=== PATIENT | female | born 1945 | race Hispanic/Latino ===

== ENCOUNTER → 2018-07-10 | Outpatient (CLI) | payer MEDICARE, OTHER | END | disposition home or self-care (01) | LOC: RAH 10:47 | PROVIDERS: ATTEND Internal Medicine Gastroenterology | DX: R14.0 Abdominal distension (gaseous) (principal); R10.9 Unspecified abdominal pain; R11.2 Nausea with vomiting, unspecified; R68.81 Early satiety | CPT/HCPCS: 78264; A9541 ==

== ENCOUNTER 2022-01-18 10:26 | Emergency (ER) | payer MEDICARE, OTHER ==
[~2022-01-18] VITALS: Ht 152.4 cm; Wt 50.3 kg
[2022-01-18 12:33] LABS: APPEARANCE,URINE Cloudy (CLEAR); BILIRUBIN,URINE Negative (NEGATIVE); COLOR,URINE Dark Yellow (YELLOW); GLUCOSE, URINE (UA) Negative (NEGATIVE); KETONES,URINE Trace mg/dL (NEGATIVE); LEUKOCYTE ESTERASE ,URINE Trace (NEGATIVE); NITRATE,URINE Negative (NEGATIVE); OCCULT BLOOD,URINE Negative (NEGATIVE); PROTEIN,URINE POS 1+ mg/dL (NEGATIVE)
[2022-01-18 12:36] LABS: BACTERIA,URINE Rare /HPF (None Seen); RBC,URINE 0-1 /HPF (0-1); SQUAMOUS EPITHELIAL CELL,UR Rare /HPF (0-2); WBC,URINE 0-1 /HPF (0-1)
[2022-01-18 12:52] LABS: HEMATOCRIT 39.8 % (36-48); LYMPHOCYTES % (AUTO) 16.6 % (21.0-51.0); MEAN CORPUSCULAR HEMOGLOBIN 29.6 pg (27.0-33.0); MEAN CORPUSCULAR HGB CONC 32.9 g/dL (32.0-36.0); MONOCYTES % (AUTO) 7.2 % (3.0-13.0); NEUTROPHILS % (AUTO) 72.9 % (40.0-77.0); PLATELET COUNT (AUTO) 458 K/uL (130-400); RED BLOOD CELL COUNT(AUTO) 4.42 MIL/uL (4.00-5.50); WHITE BLOOD COUNT (AUTO) 9.1 K/uL (4.8-10.8)
[2022-01-18 13:08] LABS: CREATININE 1.1 mg/dL (0.5-1.5); POTASSIUM 4.2 mmol/L (3.5-5.1)
[2022-01-18 13:14] LABS: ALBUMIN 4.2 g/dL (3.5-5.0); BILIRUBIN,TOTAL 0.3 mg/dL (0.2-1.0); TOTAL PROTEIN, SERUM 7.9 g/dL (6.0-8.3)
[2022-01-18 14:46] VITALS: BP 177/82
[2022-01-18] MEDS ORDERED: 0.9% NACL 500ML IV.SOLN 500 ML IV ONE (16:00)
[2022-01-18] MEDS ORDERED: KETOROLAC 15MG/ML VIAL (15MG/ML) IV ONE (16:00)
== END 2022-01-18 17:10 | disposition home or self-care (01) ==
LOC: EDH 10:26
DX: R51.9 Headache, unspecified (principal); M25.511 Pain in right shoulder; E03.9 Hypothyroidism, unspecified; Z79.1 Long term (current) use of non-steroidal anti-inflammatories (NSAID)
CPT/HCPCS: 36415; 80053; 81001; 85025; 96374; 99283; J1885; J7040

== ENCOUNTER 2023-09-10 17:16 | Observation (INO) | payer MEDICARE ==
[~2023-09-10] VITALS: Ht 152.4 cm; Wt 53.3 kg
[2023-09-10 18:39] LABS: BASOPHILS % (AUTO) 1.2 % (0.0-5.0); EOSINOPHILS # (AUTO) 0.35 K/uL (0.00-0.70); EOSINOPHILS % (AUTO) 4.2 % (0.0-8.0); HEMATOCRIT 33.6 % (36-48); IMMATURE GRANULOCYTE ABSOLUTE 0.03 K/uL (0-1); LYMPHOCYTES # (AUTO) 1.8 K/uL (1.0-4.8); MEAN CORPUSCULAR HEMOGLOBIN 30.1 pg (27.0-33.0); MEAN CORPUSCULAR HGB CONC 34.5 g/dL (32.0-36.0); MEAN CORPUSCULAR VOLUME 87.3 fL (79-99); MONOCYTES # (AUTO) 0.7 K/uL (0.1-1.0); MONOCYTES % (AUTO) 7.9 % (3.0-13.0); NEUTROPHILS # (AUTO) 5.4 K/uL (1.8-7.7); NEUTROPHILS % (AUTO) 64.3 % (40.0-77.0); PLATELET COUNT (AUTO) 466 K/uL (130-400); RED BLOOD CELL COUNT(AUTO) 3.85 MIL/uL (4.00-5.50); RED CELL DISTRIBUTION WIDTH 13.2 % (11.0-15.5); WHITE BLOOD COUNT (AUTO) 8.3 K/uL (4.8-10.8)
[2023-09-10 18:56] LABS: ALBUMIN 3.6 g/dL (3.5-5.0); CREATININE 1.7 mg/dL (0.5-1.5)
[2023-09-10 19:02] LABS: BILIRUBIN,TOTAL 0.1 mg/dL (0.2-1.0); TOTAL PROTEIN, SERUM 7.2 g/dL (6.0-8.3)
[2023-09-10 19:06] LABS: POTASSIUM 2.6 mmol/L (3.5-5.1)
[2023-09-10 19:35] LABS: ADD UA MICROSCOPIC YES; APPEARANCE,URINE CLEAR (CLEAR); BILIRUBIN,URINE NEGATIVE (NEGATIVE); COLOR,URINE LIGHT-YELLOW (YELLOW); GLUCOSE, URINE (UA) NEGATIVE (NEGATIVE); KETONES,URINE NEGATIVE (NEGATIVE); LEUKOCYTE ESTERASE ,URINE NEGATIVE Leu/uL (NEGATIVE); NITRATE,URINE NEGATIVE (NEGATIVE); OCCULT BLOOD,URINE NEGATIVE (NEGATIVE); PH,URINE 6.5 (5.0-8.0); PROTEIN,URINE NEGATIVE (NEGATIVE); UROBILINOGEN,URINE 0.2 mg/dL (0.2-1.0)
[2023-09-10 19:38] LABS: MUCUS,URINE RARE LPF (None Seen); RBC,URINE 0-1 /HPF (0-1); SQUAMOUS EPITHELIAL CELL,UR RARE /HPF (0-2)
[2023-09-10] MEDS: POTASSIUM CHLORIDE 20MEQ/100ML 100 ML IV ONE (20:05)
[2023-09-11] MEDS ORDERED: POTASSIUM CHLORIDE 10% ELIXIR 20 MEQ/15 ML UDCUP PO PRN
[2023-09-11] MEDS ORDERED: ONDANSETRON 4MG TABLET PO PRN
[2023-09-11] MEDS ORDERED: ACETAMINOPHEN 325 MG TAB PO PRN
[2023-09-11] MEDS ORDERED: KCL 20 MEQ ERTAB PO PRN
[2023-09-11] MEDS: 0.9%NACL 1000ML 1,000 ML IV SCH (01:02)
[2023-09-11] MEDS: POTASSIUM CHLORIDE 10MEQ/100ML 100 ML IV PRN (01:51)
[2023-09-11] MEDS ORDERED: MAGNESIUM 2GM PREMIX 50ML 50 ML IV PRN (02:00)
[2023-09-11 02:05] VITALS: BP 140/64; PULSE 58; RESP 20
[2023-09-11 02:19] VITALS: O2SAT 97
[2023-09-11 04:00] VITALS: BP 126/59; PULSE 53; RESP 20
[2023-09-11 05:38] LABS: CREATININE 1.4 mg/dL (0.5-1.5); POTASSIUM 4.2 mmol/L (3.5-5.1)
[2023-09-11 07:30] VITALS: O2SAT 97
[2023-09-11 08:00] VITALS: BP 132/60; PULSE 56; RESP 16
[2023-09-11] MEDS ORDERED: LOPE2CAP PO (08:51)
[2023-09-11] MEDS ORDERED: FOLI1TAB85 PO (08:51)
[2023-09-11] MEDS ORDERED: ROSU5TAB12 PO (08:51)
[2023-09-11] MEDS ORDERED: LOPERAMIDE HCL 2 MG CAP PO PRN (09:00)
[2023-09-11] MEDS ORDERED: POTA-202 PO (09:43)
[2023-09-11] MEDS ORDERED: Rosuvastatin Calcium 5 MG PO SCH (17:00)
[2023-09-12] MEDS ORDERED: Vitamin B Complex/Vit C/Folic Acid PO SCH (09:00)
[2023-09-13 17:10] LABS: C DIFFICILE TOXIN A/B Not Detected (Not Detected); ENTEROAGGREGATIVE ECOLI Not Detected (Not Detected); GIARDIA LAMBLIA Not Detected (Not Detected); PLESIOMONAS SHIGELOIDES Not Detected (Not Detected); SAPOVIRUS Not Detected (Not Detected); SHIGELLA/ENTEROINVASIVE E COLI Not Detected (Not Detected); VIBRIO Not Detected (Not Detected); VIBRIO CHOLERAE Not Detected (Not Detected)
== END 2023-09-11 10:20 | disposition home or self-care (01) ==
LOC: EDH 17:16 → EDHIP 23:00 → 3CH 09-11 01:16
PROVIDERS: ADMIT Internal Medicine; ATTEND Internal Medicine
DX: K52.9 Noninfective gastroenteritis and colitis, unspecified (principal); N18.31 Chronic kidney disease, stage 3a; E87.6 Hypokalemia; E86.0 Dehydration; E87.1 Hypo-osmolality and hyponatremia; M47.812 Spondylosis without myelopathy or radiculopathy, cervical region; M47.816 Spondylosis without myelopathy or radiculopathy, lumbar region; E88.810 Metabolic syndrome; M81.0 Age-related osteoporosis without current pathological fracture; E78.5 Hyperlipidemia, unspecified; M79.10 Myalgia, unspecified site; E03.9 Hypothyroidism, unspecified; Z90.710 Acquired absence of both cervix and uterus
CPT/HCPCS: 96365; 96366 ×2; 84484; 80053; 83690; 85025; 81001; 36415 ×2; 71045; 74176; 99291; 93005; 87507; 84132; 96361; 83735; 80048; G0378 ×11; J3480 ×2; J7030

== ENCOUNTER → 2024-07-27 | Outpatient (CLI) | payer MEDICARE ==
[~2024-07-27] MED LIST: FOLI1TAB85 PO; LOPE2CAP PO; POTA-202 PO; ROSU5TAB51 PO
--- NOTE | 2024-07-27 09:39 | HMCIMG ---
Abdominal Aorta Ultrasound with Color Doppler waveform analysis Clinical Information: AAA Findings: The examination shows no evidence of aneurysm of the abdominal aorta. There is nonocclusive plaque from the aorta to the iliacs bilaterally. There is no occlusion. There is no dissection. There is no rupture. Cord Doppler waveform analysis demonstrates patent aorta and main branches without significant velocity abnormalities. Impression: There is nonocclusive plaque from the aorta to the iliacs bilaterally. No aneurysm identified.
== END | disposition home or self-care (01) ==
LOC: RAH 08:47
PROVIDERS: ATTEND Student in an Organized Health Care Education/Training Program
DX: I71.40 Abdominal aortic aneurysm, without rupture, unspecified (principal)
CPT/HCPCS: 76775

== ENCOUNTER → 2024-08-03 | Outpatient (CLI) | payer MEDICARE ==
--- NOTE | 2024-08-06 07:47 | HMCSR ---
APPROVED REPORT Laterality: Bilateral Indications Claudication: VELOCITY AND DOPPLER WAVEFORM ANALYSIS HELP DESK INTERN (R) 150.1cm/sec, Biphasic, HELP DESK INTERN (L) 151.1cm/sec, Biphasic, Prof Fem Art. (R) 122.9cm/sec, Biphasic, Prof Fem Art. (L) 66.1cm/sec, Biphasic, Fem Art Prox. (R) 79.9cm/sec, Biphasic, Fem Art Prox. (L) 66.1cm/sec, Biphasic, Fem Art Mid. (R) 89.7cm/sec, Biphasic, Fem Art Mid. (L) 83.4cm/sec, Biphasic, Fem Art Dist (R) 71.8cm/sec, Biphasic, Fem Art Dist. (L) 71.8cm/sec, Biphasic, Pop Art(AK) (R) 79.9cm/sec, Biphasic, Pop Art (AK) (L) 69.1cm/sec, Biphasic, Pop Art (Fossa)(R) 55.5cm/sec, Biphasic, Pop Art (Fossa) (L) 64.6cm/sec, Biphasic, Pop Art(BK) (R) 83.2cm/sec, Biphasic, Pop Art (BK) (L) 73.6cm/sec, Biphasic, SUPERVISOR TYPESETTING Prox. (R) 76.7cm/sec, Biphasic, SUPERVISOR TYPESETTING Prox. (L) 85.2cm/sec, Biphasic, SUPERVISOR TYPESETTING Mid. (R) 60.4cm/sec, Biphasic, SUPERVISOR TYPESETTING Mid. (L) 63.7cm/sec, Biphasic, SUPERVISOR TYPESETTING Dist. (R) 58.7cm/sec, Biphasic, SUPERVISOR TYPESETTING Dist. (L) 51.1cm/sec, Biphasic, Per Art Prox. (R) 38.1cm/sec, Biphasic, Per Art Prox. (L) 44.9cm/sec, Biphasic, Per Art Mid. (R) 32.5cm/sec, Biphasic, Per Art Mid. (L) 45.8cm/sec, Biphasic, Per Art Dist. (R) 32.5cm/sec, Biphasic, Per Art Dist. (L) 40.4cm/sec, Biphasic, JIMMY Prox. (R) 53.8cm/sec, Biphasic, JIMMY Prox. (L) 65.5cm/sec, Biphasic, JIMMY Mid. (R) 53.8cm/sec, Biphasic JIMMY Mid. (L) 55.6cm/sec, Biphasic, JIMMY Dist. (R) 56.3cm/sec, Biphasic, JIMMY Dist. (L) 82.5cm/sec, Biphasic, Technologist Impression No evidence of significant arterial insufficiency of bilateral lower extremities. Conclusion No evidence of significant arterial insufficiency of bilateral lower extremities. Conclusion No evidence of significant arterial insufficiency of bilateral lower extremities.
== END | disposition home or self-care (01) ==
LOC: SHCH 13:40
PROVIDERS: ATTEND Student in an Organized Health Care Education/Training Program
DX: I70.219 Atherosclerosis of native arteries of extremities with intermittent claudication, unspecified extremity (principal)
CPT/HCPCS: 93925

== ENCOUNTER → 2024-08-06 | Outpatient (CLI) | payer MEDICARE | END | disposition home or self-care (01) | LOC: SHCH 14:58 | PROVIDERS: ATTEND Student in an Organized Health Care Education/Training Program | DX: R06.09 Other forms of dyspnea (principal) | CPT/HCPCS: 93306 ==

== ENCOUNTER → 2024-08-19 | Outpatient (CLI) | payer MEDICARE ==
[2024-08-19 12:55] LABS: ALBUMIN 3.6 g/dL (3.5-5.0); BILIRUBIN,TOTAL 0.3 mg/dL (0.2-1.0); CREATININE 1.7 mg/dL (0.5-1.0); POTASSIUM 4.2 mmol/L (3.5-5.1); TOTAL PROTEIN, SERUM 7.4 g/dL (6.0-8.3)
== END | disposition home or self-care (01) ==
LOC: LAB 08:35
PROVIDERS: ATTEND Student in an Organized Health Care Education/Training Program
DX: M62.81 Muscle weakness (generalized) (principal)
CPT/HCPCS: 36415; 80053

== ENCOUNTER → 2024-09-03 | Outpatient (CLI) | payer MEDICARE ==
--- NOTE | 2024-09-03 14:10 | HMCIMG ---
MR SPINAL CANAL, LUMBAR WO CON REASON: M48.0 Spinal stenosis, site unspecified COMPARISON: None TECHNIQUE: Routine lumbar imaging protocol was performed. FINDINGS: There are normal appearing vertebral bodies. Interspace heights are preserved. Vertebral body alignment appears normal. There are no focal osseous lesions. Axial images show ligamentum flavum and facet hypertrophic changes at multiple levels. These result in severe spinal stenosis at the L4-5 level, AP diameter between 4 and 5 mm. There is also moderate to marked spinal stenosis at L3-4, AP diameter 6 to 7 mm. Remaining interspaces are preserved. Neural foramina appears preserved. Surrounding soft tissues appear unremarkable. IMPRESSION: 1. Spinal stenosis on a degenerative basis, severe at L4-5 and moderate to severe at L3-4.
== END | disposition home or self-care (01) ==
LOC: RAH 09:32
PROVIDERS: ATTEND Student in an Organized Health Care Education/Training Program
DX: M48.061 Spinal stenosis, lumbar region without neurogenic claudication (principal); M47.816 Spondylosis without myelopathy or radiculopathy, lumbar region; M48.07 Spinal stenosis, lumbosacral region; M51.369 Other intervertebral disc degeneration, lumbar region without mention of lumbar back pain or lower extremity pain
CPT/HCPCS: 72148

== ENCOUNTER → 2024-09-15 | Outpatient (CLI) | payer MEDICARE ==
--- NOTE | 2024-09-15 11:32 | HMCIMG ---
DEXA BONE DENSITY SURVEY HISTORY: Osteoporosis COMPARISON: None FINDINGS: Bone densitometry study was performed. Bone mineral density of the lumbar spine is 0.765 gram per centimeter square which corresponds to a T score of 2.6 and a Z score of 0.1. Bone mineral density of the left hip is 0.730 grams per centimeter square which corresponds to a T score of -1.7 and a Z score of 0.3. IMPRESSION: 1. Osteoporosis of the lumbar spine and osteopenia of left hip.
== END | disposition home or self-care (01) ==
LOC: RAH 07:47
PROVIDERS: ATTEND Internal Medicine
DX: M81.0 Age-related osteoporosis without current pathological fracture (principal); M85.88 Other specified disorders of bone density and structure, other site
CPT/HCPCS: 77080